=== PATIENT | female | born 2005 | race Caucasian/White ===

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

== ENCOUNTER 2024-01-19 16:23 | Emergency (ER) | payer BC, MEDICAID, SELFPAY ==
[2024-01-19 16:28] VITALS: BP 123/79; PULSE 86; RESP 17; TEMP 37.3; O2SAT 98; BMI 19.0
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
[2024-01-19 17:29] LABS: Basophils % 0.9 %; Eosinophils % 0.5 %; Hematocrit 40.1 % (36-47); Lymphocytes # 0.5 10^3/uL (1.5-6.5); Mean Corpuscular HGB Conc 33.9 g/dL (30-55); Mean Corpuscular Hemoglobin 30.4 pg (27-33); Mean Corpuscular Volume 89.5 fl (85-98); Mean Platelet Volume 9.4 fL (7.4-10.4); Monocytes # 0.3 10^3/uL (0.2-0.9); Monocytes % 12.4 %; Neutrophils # 1.34 10^3/uL (1.8-8.0); Neutrophils % 61.7 %; Nucleated Red Blood Cells % 0 %; Platelet Count 149 10^3/cmm (157-399); Red Blood Count 4.48 10^6/uL (3.85-5.65); Red Cell Distribution Width 12.3 % (12.1-15.1); White Blood Count 2.17 10^3/uL (4.5-13.0)
[2024-01-19 17:31] LABS: Erythrocyte Sedimentation Rate 4 mm/hr (0-15)
[2024-01-19] MEDS: famotidine 20 mg Tablet PO (17:34)
[2024-01-19] MEDS: dexamethasone 10 mg/mL INJ 8 MG IM (17:34)
[2024-01-19 17:35] VITALS: BP 118/59; PULSE 78; O2SAT 99
[2024-01-19 17:46] LABS: Alanine Aminotransferase 18 U/L (0-33); Albumin Level 4.5 g/dL (3.5-5.2); Alkaline Phosphatase 63 U/L (35-105); Aspartate Amino Transferase 22 U/L (0-32); Blood Urea Nitrogen 9 mg/dL (6-20); C Reactive Protein 21.5 mg/L (0.0-4.9); Calcium 9.2 mg/dL (8.5-10.5); Carbon Dioxide 25 mmol/L (22-29); Chloride 99 mmol/L (98-107); Creatinine Clr Calc Pharmacy 149.0456; Globulin 2.9 g/dL (1.3-4.6); Glomerular Filtration Rate 127.5 mL/min (90-130); Glucose 85 mg/dL (65-115); Osmolality Calculated 278 mOsm/kg (285-295); Sodium 135 mmol/L (136-145); Total Bilirubin 1.4 mg/dL (0.15-1.2); Total Protein 7.4 g/dL (6.6-8.7)
[2024-01-19 18:19] VITALS: BP 132/93; PULSE 92; O2SAT 98
[2024-01-22 11:21] LABS: Lyme AB Screen <0.90 index
[2024-01-25 17:30] LABS: E. Chaffeensis AB IGG <1:64; E. Chaffeensis AB IGM <1:20
[2024-01-25 19:11] LABS: RMSF IGG NOT DETECTED; RMSF IGM NOT DETECTED
== END 2024-01-19 18:20 | disposition home or self-care (01) ==
PROVIDERS: Emergency Provider Physician Assistant; PCP Nurse Practitioner
DX: A93.8 Other specified arthropod-borne viral fevers (principal)
CPT/HCPCS: 36415; 80053; 85025; 85651; 86140; 86618; 86666; 86757; 96372; 99284; J1100

== ENCOUNTER → 2024-05-06 10:46 | Outpatient (BNVA) | payer BC, MEDICAID, SELFPAY | PROVIDERS: PCP Nurse Practitioner; Visit Provider Nurse Practitioner | DX: F41.9 Anxiety disorder, unspecified (principal); W57.XXXA Bitten or stung by nonvenomous insect and other nonvenomous arthropods, initial encounter | CPT/HCPCS: 80053; 85025; 86003; 86008 ==

== ENCOUNTER 2024-06-11 14:27 | Outpatient (CLI) | payer BC, MEDICAID, SELFPAY ==
--- NOTE | 2024-06-11 14:30 | MR_ITS ---
WS: [id number] MRI HEAD WITH CONTRAST TECHNIQUE: Sagittal T1, T2 axial, T2 axial FLAIR, axial susceptibility weighted imaging, axial diffus ion weighted images, and coronal T2 images were obtained. Pre and post-T1 axial and post T1 coronal i mages. ADC and FSPGR images. CLINICAL INFORMATION: S06.9X9A - Unspecified intracranial injury with loss of c... COMPARISON: MRI 2021 FINDINGS: No evidence of restricted diffusion to suggest acute ischemia. Ventricular system and basal cisterns are patent. Normal vascular flow voids at the skull base. No extra-axial fluid collections. No eviden ce of mass or mass effect. Cavum septum pellucidum. Incidental arachnoid cyst in the LEFT middle cran ial fossa measuring 2.4 x 1.5 cm. Normal posterior nasopharynx. Numerous scattered foci of hemosiderin in both hemispheres and posterior fossa similar to previous. S table mild supratentorial parenchymal volume loss. Moderate atrophy involving the temporal lobes and hippocampal formations. Wallerian degeneration RIGHT midbrain. Stable mild to moderate atrophy of the brainstem and medulla. Stable encephalomalacia of the corpus callosum with associated hemosiderin. N ormal optic chiasm and pituitary infundibulum. MR/MR head wo/w con [id number] IMPRESSION: Overall no significant changes compared to previous.] 1. Stable numerous scattered supra and infratentorial foci of hemosiderin prev iously described compatible with history of traumatic brain injury. 2. Moderate atrophy involving the temporal lobes and hippocampal formations. 3. Stable mild to moderate parenchymal volume loss involving the midbrain,nick and brainstem. 4. Moderate atrophy with encephalomalacia involving the corpus callosum with h emosiderin is unchanged 5. Stable mild hazy periventricular T2 signal abnormality likely related to hi story of TBI.
== END 2024-06-11 14:28 | disposition home or self-care (01) ==
LOC: RAD 14:27
PROVIDERS: PCP Nurse Practitioner; Visit Provider Nurse Practitioner
DX: S06.9X9A Unspecified intracranial injury with loss of consciousness of unspecified duration, initial encounter (principal); G31.1 Senile degeneration of brain, not elsewhere classified; G93.89 Other specified disorders of brain; Q04.0 Congenital malformations of corpus callosum; X58.XXXA Exposure to other specified factors, initial encounter
CPT/HCPCS: 70553; A9577

== ENCOUNTER 2024-12-10 13:57 | Outpatient (CLI) | payer BC, MEDICAID, SELFPAY ==
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
== END 2024-12-10 13:58 | disposition home or self-care (01) ==
LOC: RAD 13:59
PROVIDERS: PCP Nurse Practitioner; Visit Provider Nurse Practitioner
DX: Z87.81 Personal history of (healed) traumatic fracture (principal)
CPT/HCPCS: 73000